=== PATIENT | female | born 1965 | race African-American/Black ===

== ENCOUNTER 2016-09-28 22:49 | Emergency (ER) | payer BC ==
[~2016-09-28] VITALS: Ht 167.6 cm; Wt 83.9 kg
[2016-09-28] MEDS ORDERED: NKM (23:07)
[2016-09-28 23:24] VITALS: BP 115/70
[2016-09-28] MEDS ORDERED: EPINEPHrine 1mg/1ml Amp IM ONE (23:45)
--- NOTE | 2016-09-29 01:15 | Emergency Room Report ---
History of Present Illness General Chief Complaint: Skin Rash/Abscess Source: Patient Present Illness HPI Patient with rash. Began few days ago. Seen by Urgent Care and given Prednisone. Still with itching. Stress. No fevers. No joint pain. No problems breathing or throat swelling. Never with this before. No NVD, dysuria. No new soaps, clothes, foods, travel. It was worse and began around her trunk. No pain. Itching is severe. No major medical problems. 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 Now: No : 0 Para: 0 Nursing Documentation-[facility] Past Medical History: No Stated History Review of Systems All Other Systems: negative except mentioned in HPI Physical Exam Vital Signs Date Time Temp Pulse Resp B/P Pulse Ox O2 Delivery O2 Flow Rate FiO2 09/28/16 23:04 98.2 67 14 115/70 97 Room Air Sp02 EP Interpretation: reviewed, normal General Appearance: well appearing, no apparent distress, GCS 15 Head: normocephalic Eyes: bilateral eye PERRL, bilateral eye normal inspection ENT: normal pharynx, no angioedema, moist mucus membranes Neck: supple, other - no stridor Respiratory: lungs clear, normal breath sounds Cardiovascular #1: regular rate, rhythm Cardiovascular #2: 2+ radial (R) Gastrointestinal: normal inspection, normal bowel sounds, non tender, no mass, non-distended Musculoskeletal: back normal, gait/station normal, normal range of motion Neurologic: alert, oriented x3, grossly normal Psychiatric: other - uncomfortable with itching Skin: warm/dry, other - wheel flare reaction centrally and some lesions arms Medical Decision Making Diagnostic Impression: Primary Impression: Hives ER Course Patient with wheel flare reaction on prednisone. DDx: allergy, viral, stress amongst others. No signs of airway compromise or unstable VS. However, as on prednisone, will give dose of epi with benadryl. No labs indicated. Patient improved with epi. VS and HR stable. Rash greatly improved. Discussed need for w/u. Patient stable for outpatient observation and treatment. Last Vital Signs Date Time Temp Pulse Resp B/P Pulse Ox O2 Delivery O2 Flow Rate FiO2 09/29/16 01:23 62 16 120/83 97 Room Air 09/28/16 23:24 98.2 Status: improved Disposition: HOME, SELF-CARE Condition: Improved Scripts Triamcinolone Acetonide (TRIAMCINOLONE ACETONIDE) 15 Gm Oint...g. 1 APPLIC TP BID, #20 GM Prov: Abdiel Krause M.D. 09/29/16 Diphenhydramine Hcl* (BENADRYL*) 25 Mg Capsule 25 MG ORAL Q6H Y for Itching, #14 CAP Prov: Abdiel Krause M.D. 09/29/16 Referrals: NOT CHOSEN SETH/,REFERRING (PCP) Abdiel Krause M.D. Sep 29, 2016 01:15
[2016-09-29] MEDS ORDERED: TRIAMCINOLONE A15 G2 TP (01:17)
[2016-09-29] MEDS ORDERED: BENADRYL25 MG ORAL (01:17)
[2016-09-29 01:23] VITALS: BP 120/83
== END 2016-09-29 01:20 | disposition home or self-care (01) ==
LOC: EMR 23:18
DX: L50.9 Urticaria, unspecified (principal)
CPT/HCPCS: 96372; 99283; J0171; J8540

== ENCOUNTER 2016-10-20 12:34 | Observation (INO) | payer BC ==
[~2016-10-20] VITALS: Ht 167.6 cm; Wt 81.6 kg
[~2016-10-20 12:34] MED LIST: BENADRYL25 MG ORAL; NKM; TRIAMCINOLONE A15 G2 TP
--- NOTE | 2016-10-20 12:51 | Emergency Room Report ---
History of Present Illness General Chief Complaint: Chest Pain Source: Patient Present Illness HPI Patient 51-year-old female presented after increased chest pain. Patient reported having increased chest tightness. She had associated chest pressure. This began one hour prior to arrival and is constant in nature. Patient prior history of high cholesterol but denies prior history of diabetes or high blood pressure. Patient denied any leg pain or swelling. She had not been coughing or having difficulty breathing. She denies prior cardiac history. The patient recently finished a course of prednisone for allergic reaction Allergies: Coded Allergies: No Known Allergies (Unverified , 09/28/16) Patient History Past Medical History: see triage record Last Menstrual Period: 09/28/16 Now: No : 0 Para: 0 Reviewed Nursing Documentation: PMH: Agreed, PSxH: Agreed Nursing Documentation-PMH Past Medical History: No Stated History Review of Systems All Other Systems: negative except mentioned in HPI Physical Exam Vital Signs Date Time Temp Pulse Resp B/P Pulse Ox O2 Delivery O2 Flow Rate FiO2 10/20/16 12:41 97.9 76 14 115/67 97 Room Air Sp02 EP Interpretation: reviewed, normal General Appearance: normal inspection, well appearing, no apparent distress, alert, GCS 15 Head: atraumatic ENT: normal ENT inspection, hearing grossly normal, normal voice Neck: normal inspection, full range of motion, supple, no bony tend Respiratory: normal inspection, lungs clear, normal breath sounds, no respiratory distress, no retraction, no wheezing Cardiovascular #1: regular rate, rhythm, no edema Gastrointestinal: normal inspection, normal bowel sounds, non tender, soft, no guarding, no hernia Genitourinary: no CVA tenderness Musculoskeletal: normal inspection, back normal, normal range of motion Neurologic: normal inspection, alert, oriented x3, responsive, surveillance camera technician III-XII nml as tested, speech normal Psychiatric: normal inspection, judgement/insight normal, mood/affect normal Skin: normal inspection, normal color, no rash Medical Decision Making Diagnostic Impression: Primary Impression: Chest pain Additional Impression: ACS (acute coronary syndrome) ER Course Patient presented for chest pain. Differential diagnosis included but was not limited to acute coronary syndrome, pulmonary embolism, pneumonia, aortic dissection, shingles, pneumothorax, aortic dissection, esophageal rupture, pericarditis. Because of complexity of patient's case laboratory testing and imaging studies were ordered.Initial laboratory studies were unremarkable however given the patient's acute onset of chest pain less than 3 hours this has not effectively ruled out the patient.Chest x-ray one view interpreted by me showed normal cardiac size without evident infiltrate. Dr. Tim Narvaez was contacted for inpatient observation due to patient's recent acute onset of chest pain Labs Test 10/20/16 13:10 White Blood Count 5.1 K/UL (4.8-10.8) Red Blood Count 4.07 M/UL (4.20-5.40) Hemoglobin 13.0 G/DL (12.0-16.0) Hematocrit 39.5 % (37.0-47.0) Mean Corpuscular Volume 97 FL (80-99) Mean Corpuscular Hemoglobin 31.8 PG (27.0-31.0) Mean Corpuscular Hemoglobin Concent 32.8 G/DL (32.0-36.0) Red Cell Distribution Width 11.0 % (11.6-14.8) Platelet Count 269 K/UL (150-450) Mean Platelet Volume 7.2 FL (6.5-10.1) Neutrophils (%) (Auto) 56.5 % (45.0-75.0) Lymphocytes (%) (Auto) 32.3 % (20.0-45.0) Monocytes (%) (Auto) 7.5 % (1.0-10.0) Eosinophils (%) (Auto) 2.1 % (0.0-3.0) Basophils (%) (Auto) 1.6 % (0.0-2.0) Prothrombin Time 10.1 SEC (9.30-11.50) Prothromb Time International Ratio 1.0 (0.9-1.1) Activated Partial Thromboplast Time 25 SEC (23-33) Sodium Level 137 mEQ/L (135-145) Potassium Level 4.0 mEQ/L (3.4-4.9) Chloride Level 102 mEQ/L (98-107) Carbon Dioxide Level 22 mEQ/L (20-30) Anion Gap 13 (5-15) Blood Urea Nitrogen 14 mg/dL (7-23) Creatinine 0.8 mg/dL (0.5-0.9) Estimat Glomerular Filtration Rate > 60 mL/min (>60) Glucose Level 100 mg/dL (74-106) Calcium Level 9.2 mg/dL (8.6-10.2) Total Bilirubin 0.3 mg/dL (0.0-1.2) Aspartate Amino Transf (AST/SGOT) 21 U/L (5-40) Alanine Aminotransferase (ALT/SGPT) 21 U/L (3-33) Alkaline Phosphatase 64 U/L (35-104) Total Creatine Kinase 94 U/L (26-140) Creatine Kinase MB 2.7 ng/mL (< 3.8) Creatine Kinase MB Relative Index 2.8 Troponin I < 0.30 ng/mL (<=0.30) Pro-B-Type Natriuretic Peptide 10 pg/mL (0-125) Total Protein 7.0 g/dL (6.6-8.7) Albumin 3.9 g/dL (3.5-5.2) Globulin 3.1 g/dL Albumin/Globulin Ratio 1.2 (1.0-2.7) Lipase 26 U/L (< 60) Last Vital Signs Date Time Temp Pulse Resp B/P Pulse Ox O2 Delivery O2 Flow Rate FiO2 10/20/16 12:41 97.9 76 14 115/67 97 Room Air Status: improved Disposition: HOME, SELF-CARE Condition: Stable Dakota Downing Oct 20, 2016 12:51
[2016-10-20 13:10] VITALS: BP 115/67
[2016-10-20 13:38] LABS: BASOPHILS % (AUTO) 1.6 % (0.0-2.0); EOSINOPHILS % (AUTO) 2.1 % (0.0-3.0); LYMPHOCYTES % (AUTO) 32.3 % (20.0-45.0); MEAN CORPUSCULAR HEMOGLOBIN 31.8 PG (27.0-31.0); MEAN CORPUSCULAR HGB CONC 32.8 G/DL (32.0-36.0); MEAN CORPUSCULAR VOLUME 97 FL (80-99); MEAN PLATELET VOLUME 7.2 FL (6.5-10.1); MONOCYTES % (AUTO) 7.5 % (1.0-10.0); NEUTROPHILS % (AUTO) 56.5 % (45.0-75.0); PLATELET COUNT 269 K/UL (150-450); RED BLOOD COUNT 4.07 M/UL (4.20-5.40); WHITE BLOOD COUNT 5.1 K/UL (4.8-10.8)
[2016-10-20 13:49] LABS: PROTHROMBIN TIME 10.1 SEC (9.30-11.50)
[2016-10-20 13:51] LABS: CHLORIDE 102 mEQ/L (98-107); SODIUM 137 mEQ/L (135-145)
[2016-10-20 13:56] LABS: ALANINE AMINOTRANSFERASE 21 U/L (3-33); ASPARTATE AMINO TRANSFERASE 21 U/L (5-40); CALCIUM 9.2 mg/dL (8.6-10.2); CARBON DIOXIDE 22 mEQ/L (20-30); CREATININE 0.8 mg/dL (0.5-0.9); GLOMERULAR FILTRATION RATE > 60 mL/min (>60); TROPONIN I < 0.30 ng/mL (<=0.30)
[2016-10-20 13:57] LABS: ALBUMIN/GLOBULIN RATIO 1.2 (1.0-2.7); ANION GAP 13 (5-15); HEMOLYSIS 8; LIPASE 26 U/L (< 60)
[2016-10-20 14:00] VITALS: BP 124/64
[2016-10-20 14:07] LABS: CKMB 2.7 ng/mL (< 3.8)
[2016-10-20] MEDS ORDERED: Nitroglycerin Subl 0.4mg tab (Bottle Of 25) SL PRN (15:45)
[2016-10-20 19:51] VITALS: BP 116/78
[2016-10-20] MEDS: Heparin 5000 units/ml inj SUBQ SCH (22:00)
[2016-10-21 00:23] VITALS: BP 107/69
--- NOTE | 2016-10-21 02:15 | History and Physical Report ---
DATE OF ADMISSION: 10/20/2016 CHIEF COMPLAINT: Chest pain. HISTORY OF PRESENT ILLNESS: The patient is a pleasant 51-year-old female. She has no past medical history, who presented with complaints of one week of progressive substernal chest pain. According to the patient, she has had intermittent episodes of pressure-like chest pain. She states that she feels like "somebody is sitting on my chest." The symptoms are nonexertional. She denies any fevers or chills. She has had no cough. She does work for [email or web address] and does do heavy lifting, but denies any recent injuries or unusual activity or trauma. Evaluation in the emergency room, the patient's initial enzymes and EKG were unremarkable. She has now been admitted for further evaluation for her chest pain. PAST MEDICAL HISTORY: Hyperlipidemia. PAST SURGICAL HISTORY: None. CURRENT MEDICATIONS: None. FAMILY HISTORY: Significant for diabetes and dementia. SOCIAL HISTORY: Negative for tobacco, ethanol, or drugs. REVIEW OF SYSTEMS: Negative except for chest pain. PHYSICAL EXAMINATION: VITAL SIGNS: Temperature 97.9, blood pressure 115/67, pulse 76, respirations 20. GENERAL: The patient is well-developed, in no apparent distress. NECK: Supple. There is no jugular venous distention. HEART: Regular rate and rhythm. LUNGS: Lungs are clear. ABDOMEN: Soft, nontender, and nondistended. EXTREMITIES: Without clubbing, cyanosis, or edema. LABORATORY DATA: Troponin is negative. White count 5. EKG showed sinus rhythm without acute ST-T wave changes. ASSESSMENT: This is a pleasant female with complaints of atypical chest pain, doubt cardiac. Family history of hyperlipidemia. PLAN: Serial troponins and EKGs. Stress test in the morning. Check a lipid panel. Check thyroid function tests. Tim Narvaez M.D. DR: SELIN JOB#: [id number] CC:
[2016-10-21 04:30] VITALS: BP 110/72
[2016-10-21 08:10] VITALS: BP 116/77
[2016-10-21] MEDS: Heparin 5000 units/ml inj SUBQ SCH (08:50)
[2016-10-21] MEDS ORDERED: Aspirin Baby 81mg ORAL SCH (09:00)
[2016-10-21 09:40] LABS: TROPONIN I < 0.30 ng/mL (<=0.30)
[2016-10-21 09:52] LABS: CHOLESTEROL/HDL RATIO 4.3 (3.3-4.4)
[2016-10-21 11:50] VITALS: BP 116/64
--- NOTE | 2016-10-21 12:03 | Diagnostic Imaging Report ---
Indication: Dyspnea Comparison: None A single view chest radiograph was obtained. Findings: Cardiomediastinal appearance is within normal limits for age. Pulmonary vascularity is appropriate. The diaphragmatic contour is smooth and costophrenic angles are sharp. No pleural effusions are identified. The bones are unremarkable. Impression: No acute findings
[2016-10-21 16:21] VITALS: BP 108/60
--- NOTE | 2016-10-22 06:10 | Diagnostic Imaging Report ---
Indication: chest pain Technique: The study was conducted under the supervision of a certified orthotic fitter. Exercise on a treadmill utilizing (Foreign protocol) followed by intravenous administration of 31.1 mCi of technetium 99m Myoview was performed. Three plane SPECT imaging of the heart was then performed. A resting study was performed as part of the one-day protocol with 9.1 mCi of technetium 99m myoview injected intravenously at that time. Three plane SPECT imaging of the heart was obtained. Comparison: None Clinical data: Resting heart rate: 80. Peak exercise heart rate: 113 (66% of maximum predicted heart rate) Resting BP: 113/74. Peak exercise BP: 123/65. Patient exercised for 3 minutes. Electively stopped. 1. Clinical response: Non ischemic 2. Electrocardiographic response: Non ischemic Findings: The myocardial perfusion scan demonstrates no definite fixed or reversible perfusion defects. LVEF estimated at 79%. Suboptimal stress limiting evaluation. Impression: Negative myocardial perfusion scan.
--- NOTE | 2016-10-22 18:59 | Cardiology Report ---
APPROVED REPORT EKG Measurement Heart [id number] Normal sinus rhythm Normal ECG
== END 2016-10-21 18:00 | disposition home or self-care (01) ==
LOC: EMR 13:25 → 2E 14:06 → EDBEDREQ 14:19 → 2E 14:52
DX: R07.89 Other chest pain (principal); E78.5 Hyperlipidemia, unspecified
CPT/HCPCS: 36415; 71010; 78452; 80053; 80061; 82550; 82553; 83690; 83880; 84484; 85025; 85610; 85730; 93005; 93017; 99285; A4641; J1644; G0378